=== PATIENT | female | born 1950 | race African-American/Black ===

== ENCOUNTER 2019-07-17 22:15 | Emergency (ER) | payer BC ==
[2019-07-17 22:25] VITALS: TEMP 98.3; BMI 24.8
--- NOTE | 2019-07-17 23:45 | PDOC ---
History of Present Illness - General Chief Complaint: Blood Sugar Problem Stated Complaint: HYPERGLYCEMIA Time Seen by Provider: 07/17/19 23:45 History Source: Patient Exam Limitations: No Limitations - History of Present Illness Initial Comments: 68 year old female with PMH HTN sent to ED from Urgent Care for hyperglycemia. 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 She went to [facility] who recommended she be medical evaluated in an Emergency Department. She denied fever, chills, cough, vomiting, abdominal pain, diarrhea, lightheadedness, headache, chest pain, dysuria, shortness of breath. Pt reported she feels in her normal state of health. She denied steroid use. Past History - Past Medical History Allergies/Adverse Reactions: Allergies Allergy/AdvReac Type Severity Reaction Status Date / Time No Known Allergies Allergy Verified 07/18/19 03:19 Home Medications: Ambulatory Orders Cephalexin Monohydrate [Keflex -] 500 mg PO BID 7 Days #14 capsule 07/18/19 metFORMIN HCL [Glucophage -] 500 mg PO BID #14 tablet 07/18/19 COPD: No - Psycho Social/Smoking Cessation Hx Smoking History: Never smoked Have you smoked in the past 12 months: No Information on smoking cessation initiated: No Hx Alcohol Use: No Drug/Substance Use Hx: No Review of Systems - Review of Systems Able to Perform ROS?: Yes Comments:: ROS General: denied fever, chills, generalized weakness. HEENT: denied sore throat, rhinorrhea, ear pain. Cardiovascular: denied chest pain, palpitations, syncope, diaphoresis. Respiratory: denied shortness of breath, cough, sputum production, hemoptysis. Gastrointestinal: denied abdominal pain, nausea, vomiting, diarrhea, constipation, blood in stool. Genitourinary: denied dysuria, increased urinary frequency, hematuria, urinary incontinence, flank pain. Back: denied back pain. Musculoskeletal: denied joint pain, muscle pain, joint swelling. Neurological: denied headache, dizziness, numbness, tingling, weakness. Integumentary: denied rash, laceration, abrasion. Hematologic/Lymphatic: denied bruising or bleeding. PE Constitutional: Well-nourished, Well-developed, appearing stated age. HEENT: head is normocephalic, atraumatic. EOMI. PERRLA. Neck: supple. Full ROM. Cardiovascular: regular heart rhythm. no murmurs. no pericardial friction rub. Respiratory: clear to auscultation bilaterally. no crackles, rhonchi or wheezing. no stridor. Gastrointestinal: soft, nontender. normal bowel sounds. no rebound, guarding, masses. Extremities: peripheral pulses intact. no lower extremity edema. Neurological: CN 2-12 grossly intact. moves all four extremities. Psych: awake, alert, oriented x3. follows commands. answers questions appropriately. *Physical Exam - Vital Signs Last Vital Signs Temp Pulse Resp BP Pulse Ox 98.3 F 115 H 18 160/90 100 07/17/19 22:23 07/17/19 22:23 07/17/19 22:23 07/17/19 22:23 07/17/19 22:23 ED Treatment Course - LABORATORY CBC & Chemistry Diagram: 07/18/19 00:01 07/18/19 00:01 Medical Decision Making - Medical Decision Making 68 year old female with above PMH sent to ED by urgent care for hyperglycemia. Initial Vital Signs Pulse BP Pulse Ox 109 H 149/94 99 07/17/19 22:22 07/17/19 22:22 07/17/19 22:22 Tachycardic. Hypertensive. No hypoxia on room air. Vital Signs Temperature 98.3 F 07/17/19 22:23 Pulse Rate 115 H 07/17/19 22:23 Respiratory Rate 18 07/17/19 22:23 Blood Pressure 160/90 07/17/19 22:23 O2 Sat by Pulse Oximetry (%) 100 07/17/19 22:23 Afebrile. 07/18/19 01:53 CBC WBC 7.5 K/mm3 (4.0-10.0) 07/18/19 00:01 RBC 5.66 M/mm3 (3.60-5.2) H 07/18/19 00:01 Hgb 16.1 GM/dL (10.7-15.3) H 07/18/19 00:01 Hct 47.5 % (32.4-45.2) H 07/18/19 00:01 MCV 83.9 fl (80-96) 07/18/19 00:01 MCH 28.5 pg (25.7-33.7) 07/18/19 00:01 MCHC 33.9 g/dl (32.0-36.0) 07/18/19 00:01 RDW 13.1 % (11.6-15.6) 07/18/19 00:01 Plt Count 204 K/MM3 (134-434) 07/18/19 00:01 MPV 10.2 fl (7.5-11.1) 07/18/19 00:01 Absolute Neuts (auto) 3.7 K/mm3 (1.5-8.0) 07/18/19 00:01 Neutrophils % 49.1 % (42.8-82.8) 07/18/19 00:01 Lymphocytes % 40.1 % (8-40) H 07/18/19 00: Monocytes % 9.4 % (3.8-10.2) 07/18/19 00: Eosinophils % 1.1 % (0-4.5) 07/18/19 00: Basophils % 0.3 % (0-2.0) 07/18/19 00:01 Nucleated RBC % 0 % (0-0) 07/18/19 00:01 No leukocytosis. No anemia. CMP Sodium 134 mmol/L (136-145) L 07/18/19 00:01 Potassium 4.3 mmol/L (3.5-5.1) 07/18/19 00:01 Chloride 101 mmol/L (98-107) 07/18/19 00:01 Carbon Dioxide 26 mmol/L (21-32) 07/18/19 00:01 Anion Gap 8 MMOL/L (8-16) 07/18/19 00:01 BUN 9.9 mg/dL (7-18) 07/18/19 00:01 Creatinine 0.9 mg/dL (0.55-1.3) 07/18/19 00:01 Est GFR (CKD-EPI)AfAm 77.22 07/18/19 00:01 Est GFR (CKD-EPI)NonAf 66.63 07/18/19 00:01 POC Glucometer 347 UNITS (80-120) 07/18/19 01:13 Random Glucose 389 mg/dL (74-106) H 07/18/19 00:01 Calcium 10.2 mg/dL (8.5-10.1) H 10/31/19 00:01 Magnesium 2.0 mg/dL (1.8-2.4) 07/18/19 00:01 Total Bilirubin 0.4 mg/dL (0.2-1) 07/18/19 00:01 AST 20 U/L (15-37) 07/18/19 00:01 ALT 32 U/L (13-61) 07/18/19 00:01 Alkaline Phosphatase 148 U/L (45-117) H 07/18/19 00:01 Total Protein 7.6 g/dl (6.4-8.2) 07/18/19 00:01 Albumin 3.7 g/dl (3.4-5.0) 07/18/19 00:01 Mild hyponatremia - IVF running. No CARMELO. No transaminitis. Hyperglycemia - IVF running. VBG: no acidosis. 07/18/19 03:29 Urine Test Results Urine Color Yellow 07/18/19 02:30 Urine Appearance Cloudy 07/18/19 02:30 Urine pH 5.0 (5.0-8.0) 07/18/19 02:30 Ur Specific [place] 1.048 (1.010-1.035) H 07/18/19 02:30 Urine Protein Negative (NEGATIVE) 07/18/19 02:30 Urine Glucose (UA) 3+ (NEGATIVE) H 07/18/19 02:30 Urine Ketones 40 mg/dl (NEGATIVE) 07/18/19 02:30 Urine Blood Trace (NEGATIVE) 07/18/19 02:30 Urine Nitrite Negative (NEGATIVE) 07/18/19 02:30 Urine Bilirubin Negative (NEGATIVE) 07/18/19 02:30 Ur Leukocyte Esterase 2+ (NEGATIVE) H 07/18/19 02:30 Positive for UTI. Medications ordered: Ceftriaxone 1g IV once Vital Signs Pulse Rate 100 H 07/18/19 04:09 Respiratory Rate 18 07/18/19 04:09 O2 Sat by Pulse Oximetry (%) 100 07/18/19 04:09 07/18/19 04:52 Repeat Blood glucose 275. Vital Signs Temperature 98.3 F 07/17/19 22:23 Pulse Rate 74 07/18/19 05:30 Respiratory Rate 18 07/18/19 05:30 Blood Pressure 147/84 07/18/19 05:30 O2 Sat by Pulse Oximetry (%) 100 07/18/19 05:30 Repeat vitals show resolved tachycardia. Pt is still afebrile. Dispo: Discharged F/U: PCP Discharge - Discharge Information Problems reviewed: Yes Clinical Impression/Diagnosis: Hyperglycemia, UTI (urinary tract infection) Condition: Stable Disposition: HOME - Admission No - Additional Discharge Information Prescriptions: Cephalexin Monohydrate [Keflex -] 500 mg PO BID 7 Days #14 capsule metFORMIN HCL [Glucophage -] 500 mg PO BID #14 tablet - Follow up/Referral Referrals: ON STAFF,NOT [Primary Care Provider] - - Patient Discharge Instructions Patient Printed Discharge Instructions: DI for Urinary Tract Infection (UTI), DI for Hyperglycemia -- Adult Additional Instructions: Follow up with your primary care doctor within 3 days. Your care is not complete until you follow up. You have a Urinary Tract Infection. A prescription was sent to your pharmacy, take as advised on label. Take with food. Finish all pills, do not stop early even if you are feeling better. I sent a prescription for Glucophage, a diabetic medication. You may have diabetes, and you need further testing from your primary care doctor. Return to the Emergency Department for increasing pain, vomiting, lightheadedness, dizziness, passing out, chest pain, shortness of breath, fever or any other new, worsening or concerning symptoms. - Post Discharge Activity Work/Back to School Note: Back to Work
--- NOTE | 2019-07-18 00:02 | PDOC ---
Attending Attestation - Resident Resident Name: FelicityPam - ED Attending Attestation I have performed the following: I have examined & evaluated the patient, The case was reviewed & discussed with the resident, I agree w/resident's findings & plan - HPI HPI: 07/18/19 05:04 see resident hpi - Physicial Exam PE: 07/18/19 05:05 agree with resident exam - Medical Decision Making 07/18/19 05:05 68-year-old female with elevated blood sugar sent in by urgent care for evaluation Patient's blood sugar decreased to 275 after IV fluids 2 L bolus She was found to have a urinary tract infection Bicarb is within normal limits, unfortunately we are not able to obtain serum ketone levels at this time though there are no other indicators of DKA Patient will be discharged on starting dose of metformin as well as antibiotics and has agreed to follow-up with primary care for further management.
[2019-07-18 00:10] LABS: VENOUS PC02 39.5 mmHg (38-52); VENOUS PH 7.43 (7.31-7.41)
[2019-07-18 00:21] LABS: VENOUS PO2 < 49 mmHg (28-48)
[2019-07-18 00:23] LABS: BASO % 0.3 % (0-2.0); EOS % 1.1 % (0-4.5); HEMATOCRIT 47.5 % (32.4-45.2); HEMOGLOBIN 16.1 GM/dL (10.7-15.3); LYMPH % 40.1 % (8-40); MCH 28.5 pg (25.7-33.7); MCHC 33.9 g/dl (32.0-36.0); MEAN CELL VOLUME 83.9 fl (80-96); MEAN PLT VOLUME 10.2 fl (7.5-11.1); MONO % 9.4 % (3.8-10.2); NEUT % 49.1 % (42.8-82.8); PLATELET COUNT 204 K/MM3 (134-434); RBC 5.66 M/mm3 (3.60-5.2); RDW 13.1 % (11.6-15.6); WHITE BLOOD COUNT 7.5 K/mm3 (4.0-10.0)
[2019-07-18 00:37] LABS: INR 1.03 (0.83-1.09); PROTHROMBIN TIME (PATIENT) 12.2 SEC (9.7-13.0)
[2019-07-18 00:49] LABS: ALBUMIN 3.7 g/dl (3.4-5.0); BILIRUBIN,TOTAL 0.4 mg/dL (0.2-1); BLOOD UREA NITROGEN 9.9 mg/dL (7-18); CALCIUM 10.2 mg/dL (8.5-10.1); CREATININE 0.9 mg/dL (0.55-1.3); POTASSIUM 4.3 mmol/L (3.5-5.1); TOT PROT 7.6 g/dl (6.4-8.2)
[2019-07-18] MEDS ORDERED: SODIUM CHLORIDE 1,000 ML IV STA ×2 (01:15→03:29)
[2019-07-18 03:14] LABS: EPI CELLS 7.2 /HPF (0-5/HPF); HYALINE CASTS 7 /lpf (0-8); URINE APPEARANCE CLOUDY; URINE BACTERIA 759.4 /hpf (NEGATIVE); URINE BILIRUBIN NEGATIVE (NEGATIVE); URINE COLOR YELLOW; URINE GLUCOSE (UA) 3+ (NEGATIVE); URINE KETONE 40 mg/dl (NEGATIVE); URINE LEUK ESTERASE 2+ (NEGATIVE); URINE NITRITE NEGATIVE (NEGATIVE); URINE PROTEIN NEGATIVE (NEGATIVE); URINE RBC 3 /hpf (0-4); URINE UROBILINOGEN 0.2 mg/dL (0.2-1.0); URINE WBC 289 /hpf (0-5)
[2019-07-18] MEDS ORDERED: CEFTRIAXONE 1 GM in DEXTROSE 5%-WATER - 100 ML IVPB ONE (03:29)
[2019-07-18] MEDS ORDERED: CEFTRIAXONE 1 GM/50 ML BAG ONE (03:32)
[2019-07-18 05:31] VITALS: BP 147/84; PULSE 74
--- NOTE | 2019-07-18 12:05 | EKG ---
Test Reason : Blood Pressure : / mmHG Vent. Rate : 104 BPM Atrial Rate : 104 BPM P-R Int : 176 ms QRS Dur : 092 ms QT Int : 332 ms P-R-T Axes : 046 -23 013 degrees QTc Int : 436 ms SINUS TACHYCARDIA MODERATE VOLTAGE CRITERIA FOR LVH, MAY BE NORMAL VARIANT BORDERLINE ECG NO PREVIOUS ECGS AVAILABLE Confirmed by GRAY BIRMINGHAM MD ([id number]) on 07/18/2019 12:05:03 PM Referred By: Confirmed By:GRAY BIRMINGHAM MD
== END 2019-07-18 05:38 | disposition home or self-care (01) ==
LOC: JER 22:15
PROC: 3E03329 Introduction of Other Anti-infective into Peripheral Vein, Percutaneous Approach (ICD-10-PCS; principal; 2019-07-17)
PROC: 3E0337Z Introduction of Electrolytic and Water Balance Substance into Peripheral Vein, Percutaneous Approach (ICD-10-PCS; 2019-07-17)
DX: N39.0 Urinary tract infection, site not specified (principal); R73.9 Hyperglycemia, unspecified; I10 Essential (primary) hypertension
CPT/HCPCS: 36415; 80053; 81003; 82010; 82803; 82962; 83735; 85025; 85610; 85730; 87086; 93005; 93010; 99284-25; J7030